=== PATIENT | female | born 1955 | race African-American/Black ===

== ENCOUNTER → 2016-08-20 | Outpatient (CLI) | payer OTHER ==
--- NOTE | ~2016-08-20 | MR164 ---
[facility] A Service of [facility] & [facility] RADIOLOGY TEXT RESULTS PATIENT: JEAN PAUL SALAZAR LOCATION: [facility] : 59 UNIT #: [id number] AGE: [address]: PHYLLIS ADKINS APRN SEX: F ORDER DR: [id number] [address] [address] [id number] O MR#: [id number] Acc #: [id number] NAME: JEAN PAUL SALAZAR : 1955 SEX: F STUDY DATE/TIME: 08/20/2016 15:50 UNIT: [facility] ROOM: STUDY DESCRIPTION: MR Shoulder Wo Contrast Lt Attending Physician: Phyllis Adkins Referring Physician: Phylils Adkins Ordering Physician: Dion Loja Primary Care Physician: Dana Bloom A.P.R.N. MRI CENTER REPORT This report is preliminary unless electronic signature is present. EXAM MRI of the left shoulder HISTORY 61-year-old female woke up complaining of left shoulder pain, limited range of motion, decreased strength, symptoms for 6-7 weeks. Evaluate for adhesive capsulitis. TECHNIQUE Multiplanar multiecho imaging was performed of the left shoulder utilizing a high field magnet dedicated protocol. FINDINGS There is a developing glenohumeral joint osteoarthritis with developing osteophyte inferior aspect of the humeral head. Small glenohumeral joint effusion with evidence of synovitis. No sizeable loose body. There is [id number] AC joint arthropathy with a moderate amount of periarticular edema consistent with active inflammation and most likely represents active inflammatory phase of osteoarthritis. Hypertrophic change and osteophyte noted along the undersurface of the acromion. The rotator cuff demonstrates supraspinatus tendinopathy with a partial thickness articular-sided tear involving the insertional and pre insertional fibers measuring about 1.4 cm AP x 1.7 cm medial to lateral dimension. This is estimated to involve about 50% of the thickness of the tendon. The infraspinatus tendon demonstrates minimal tendinopathy along the anterior aspect. The teres minor tendon appears intact. The subscapularis tendon demonstrates mild tendinopathy without tear. Degeneration of the superior labrum. Biceps anchor and long tendon of the biceps appears intact. There is a sizable loose body along the biceps tendon within the biceps tendon sheath measuring up to a centimeter. There is marked distension of the subcoracoid bursa compatible with a subcoracoid bursitis. This is quite prominent measuring 6.2 cm x 4.[address] [facility] A Service of [facility] RADIOLOGY TEXT RESULTS PATIENT: JEAN PAUL SALAZAR LOCATION: [facility] : 59 UNIT #: [id number] AGE: [address]: PHYLLIS ADKINS PARTS ROOM ASSOCIATE SEX: F ORDER DR: 2.8 cm. Deltoid and extraarticular soft tissues unremarkable. IMPRESSION 1. Moderate to severe supraspinatus tendinopathy with a 1.4 x 1.7 cm articular sided partial tear. 2. Mild infraspinatus tendinopathy. 3. Moderate AC joint arthropathy with periarticular edema. 4. Ppfe-ek-kzmwbpic glenohumeral joint osteoarthritis. 5. Subcoracoid bursitis. 6. Not mentioned above, the patient also demonstrates mild subacromial-subdeltoid bursitis. 1. Dictated by... Mariana Ingram M.D. THIS IS AN ELECTRONICALLY VERIFIED REPORT Mariana Ingram M.D. at 08/23/2016 5:15 PM TIAN/bridger TD: 08/23/2016 14:13 JOB #: [id number] MRI CENTER REPORT
== END | disposition home or self-care (01) ==
LOC: SMRI 15:28
DX: M75.02 Adhesive capsulitis of left shoulder (principal); M75.92 Shoulder lesion, unspecified, left shoulder; M75.112 Incomplete rotator cuff tear or rupture of left shoulder, not specified as traumatic; M19.012 Primary osteoarthritis, left shoulder; M75.52 Bursitis of left shoulder; M25.412 Effusion, left shoulder
CPT/HCPCS: 73221